=== PATIENT | male | born 2000 | race Caucasian/White ===

== ENCOUNTER 2021-03-16 08:11 | Emergency (ER) | payer MEDICARE ==
[2021-03-16] MEDS ORDERED: solu-MEDROL 125 MG, Sterile H2O 10 ml 2 ML IV ONE ×2 (08:41)
[2021-03-16] MEDS ORDERED: BENADRYL 50 MG/ML IV ONE (08:41)
[2021-03-16] MEDS ORDERED: solu-MEDROL ONE (08:42)
[2021-03-16] MEDS ORDERED: Sterile H2O 10 ml IJ ONE (08:42)
[2021-03-16] MEDS ORDERED: BENADRYL 50 MG/ML ONE (08:42)
[2021-03-16] MEDS ORDERED: Sodium Chloride 0.9% 1000 ML 1,000 ML IV STA (09:27)
[2021-03-16 09:44] LABS: Appearance CLEAR (CLEAR); Bilirubin NEGATIVE (NEGATIVE); Blood NEGATIVE Ery/ul (0-5); Glucose NEGATIVE (NEGATIVE); Ketones NEGATIVE (NEGATIVE); Leukocyte Esterase NEGATIVE (NEGATIVE); Mucus SLIGHT /HPF (NEGATIVE); Nitrite NEGATIVE (NEGATIVE); Protein,Urine Dip NEGATIVE (Negative); Specific Gravity 1.011 (1.005-1.025); Urobilinogen NEGATIVE mg/dL (0-1)
[2021-03-16 09:47] LABS: ALBUMIN 4.6 g/dL (3.5-5.0); ALKALINE PHOSPHATASE 64 U/L (38-126); ANION GAP 14.9 MEQ/L (5-15); BLOOD UREA NITROGEN 9 mg/dL (9-20); CHLORIDE 103 mmol/L (98-107); Calcium 9.4 mg/dL (8.4-10.2); Carbon Dioxide 26 mmol/L (22-30); Creatinine 1 0.94 mg/dL (0.66-1.25); EST GLOMERULAR FILTRATION RATE > 60.0 ML/MIN; Glucose 109 mg/dL (74-106); Potassium 3.6 mmol/L (3.5-5.1); SGOT/AST 25 U/L (17-59); SGPT/ALT 19 U/L (0-50); SODIUM 141 mmol/L (137-145); Total Protein 7.2 g/dL (6.3-8.2)
[2021-03-16 09:49] LABS: Absolute Neutrophil Ct (ANC) 10.77 (1.4-6.9); BASOPHIL % 0.1 % (0.0-0.4); Basophil (Absolute #) 0.01 (0-0.4); Eosinophil (Absolute #) 0.12 (0-0.5); Lymphocyte (Absolute #) 1.06 (1.0-4.6); Lymphocytes % 8.4 % (24.0-44.0); Mean Cell Volume 91.2 fl (78-100); Mean Corpuscular Hemoglobin 29.8 pg (26-32); Mean Corpuscular Hgb Concent. 32.7 g/dl (32-36); Mean Platelet Volume 10.4 fl (7.5-11.0); Monocyte (Absolute #) 0.64 (0.0-1.3); Monocytes % 5.1 % (0.0-12.0); Neutrophil % 85.4 % (36.0-66.0); Platelet Count 176 K/mm3 (150-450); Red Cell Distribution Width 12.5 % (11.5-14.0); White Blood Count 12.6 K/mm3 (4.0-10.5)
[2021-03-16] MEDS ORDERED: Sodium Chloride 0.9% 1000 ML 1,000 ML ONE (09:51)
[2021-03-16 09:53] LABS: Bacteria NONE SEEN /HPF (NEGATIVE)
--- NOTE | 2021-03-16 11:39 | ERPHSYRPT ---
- History of Present Illness Time Seen by Provider: 03/16/21 08:35 Source: patient, family Exam Limitations: no limitations Patient Subjective Stated Complaint: Allergic reaction Triage Nursing Assessment: Patient ambulated back to ED and transferred self to bed. Patient A+O X3. Patient's skin flushed, warm and dry. Patient lives with grandmother and she stated she woke patient up to go to work and noticed he was red all over. Patient's face, neck, trunk, and carlos extremities noted to be red, swollen with hives. Patient denies pain or discomfort. Patient denies trouble swallowing or breathing. Lungs clear a/p carlos. Physician History: Patient is a 20-year-old male who presents with generalized rash and facial swelling particularly around the eyes. He awoke with this rash and swelling this morning. Mother gave him an aspirin and a 25 mg of liquid Benadryl. Family reports that he has had 3 episodes over the last 12 to 18 months of unexplained episodes of urticaria which have been treated with steroids and re solved. Etiology remains elusive. Timing/Duration: today Quality: itchy Severity: severe Location: generalized Possible Causes: no cause identified Modifying Factors: Improves With: antihistamine Associated Symptoms: hives, rash, swelling/mass/lumps (Swelling of the face and the eyes) Allergies/Adverse Reactions: No Known Drug Allergies Allergy (Unverified 03/16/21 08:22) Hx Influenza Vaccination/Date Given: No Hx Pneumococcal Vaccination/Date Given: No Immunizations Up to Date: Yes Travel Risk - International Travel Have you traveled outside of the country in past 3 weeks: No - Coronavirus Screening Are you exhibiting any of the following symptoms?: No Close contact with a COVID-19 positive Pt in past 14-21 Days: No - Vaccine Status Have you recieved a Covid-19 vaccination: Yes [employer]: Moderna - Vaccination Dates Date of 2cond Vaccination (if applicable): March 2021 - Review of Systems Constitutional: No Fever, No Chills Eyes: Eye Redness, Itchy Ears, Nose, & Throat: No Symptoms Respiratory: No Cough, No Dyspnea Cardiac: No Chest Pain, No Edema, No Syncope Abdominal/Gastrointestinal: No Abdominal Pain, No Nausea, No Vomiting, No Diarrhea Genitourinary Symptoms: No Dysuria Musculoskeletal: No Back Pain, No Neck Pain Skin: Rash (Generalized urticarial type rash blanches with skin stretching or pressure) Neurological: No Dizziness, No Focal Weakness, No Sensory Changes Psychological: Depression Endocrine: No Symptoms Hematologic/Lymphatic: No Symptoms Immunological/Allergic: No Symptoms All Other Systems: Reviewed and Negative - Past Medical History Pertinent Past Medical History: No Neurological History: No Pertinent History ENT History: No Pertinent History Cardiac History: No Pertinent History Respiratory History: No Pertinent History Endocrine Medical History: No Pertinent History Musculoskeletal History: No Pertinent History GI Medical History: No Pertinent History History: No Pertinent History Psycho-Social History: No Pertinent History Male Reproductive Disorders: No Pertinent History Other Medical History: learning disability ; speech impetimet - Past Surgical History Past Surgical History: No Neuro Surgical History: No Pertinent History Cardiac: No Pertinent History Respiratory: No Pertinent History Gastrointestinal: No Pertinent History Genitourinary: No Pertinent History Musculoskeletal: No Pertinent History Male Surgical History: No Pertinent History Other Surgical History: throat surgery - Social History Smoking Status: Never smoker Exposure to second hand smoke: No Drug Use: none Patient Lives Alone: No (with grandmother) - Nursing Vital Signs Nursing Vital Signs: Initial Vital Signs Temperature 99.8 F 03/16/21 08:22 Pulse Rate 125 H 03/16/21 08:22 Respiratory Rate 20 03/16/21 08:22 Blood Pressure 138/91 03/16/21 08:22 O2 Sat by Pulse Oximetry 100 03/16/21 08:22 Pain Scale Pain Intensity 0 - Physical Exam General Appearance: mild distress, alert Eye Exam: PERRL/EOMI, eyes nml inspection Ears, Nose, Throat Exam: normal ENT inspection, pharynx normal, moist mucous membranes Neck Exam: normal inspection, non-tender, supple, full range of motion Respiratory Exam: normal breath sounds, lungs clear, No respiratory distress Cardiovascular Exam: regular rate/rhythm, normal heart sounds Gastrointestinal/Abdomen Exam: soft, mass, No tenderness Back Exam: normal inspection, normal range of motion, No CVA tenderness, No vertebral tenderness Extremity Exam: normal inspection, normal range of motion Neurologic Exam: alert, oriented x 3, cooperative, normal mood/affect, sensation nml, No motor deficits Skin Exam: rash (Has generalized urticarial type rash which blanches with skin stretching or pressure it is noted there is facial edema and particularly in the periorbital areas.) SpO2 Interpretation: normal SpO2: 100 O2 Delivery: Room Air - Course Nursing assessment & vital signs reviewed: Yes Ordered Tests: Active Orders 24 hr Category Date Time Status CBC W DIFF Stat Lab 03/16/21 09:30 Completed CMP Stat Lab 03/16/21 09:30 Completed UA W/RFX UR CULTURE Stat Lab 03/16/21 09:33 Completed Medication Summary Discontinued Medications Generic Name Dose Route Start Last Admin Trade Name Robert PRN Reason Stop Dose Admin Methylprednisolone Sodium 0 mg 03/16/21 08:41 03/16/21 08:43 Succinate 125 mg/ Sterile IV 03/16/21 08:42 125 mg Water 2 ml STAT ONE Administration Diphenhydramine HCl 25 mg 03/16/21 08:41 03/16/21 08:45 Diphenhydramine Hcl 50 Mg/Ml Vial IV 03/16/21 08:42 25 mg STAT ONE Administration Diphenhydramine HCl Confirm 03/16/21 08:42 Diphenhydramine Hcl 50 Mg/Ml Vial Administered 03/16/21 08:43 Dose 50 mg .ROUTE .STK-MED ONE Sodium Chloride 1,000 mls @ 999 mls/hr 03/16/21 09:27 03/16/21 10:58 Sodium Chloride 0.9% 1000 Ml IV 03/16/21 10:27 Infused .Q1H1M STA Infusion Sodium Chloride Confirm 03/16/21 09:51 Sodium Chloride 0.9% 1000 Ml Administered 03/16/21 09:52 Dose 1,000 mls @ ud .ROUTE .STK-MED ONE Methylprednisolone Sodium Succinate Confirm 03/16/21 08:42 Methylprednis Sod Succ 125 Mg/2 Ml Vial Administered 03/16/21 08:43 Dose 125 mg .ROUTE .STK-MED ONE Sterile Water Confirm 03/16/21 08:42 Water For Injection,Sterile 10 Ml Vial Administered 03/16/21 08:43 Dose 10 ml IJ .STK-MED ONE Lab/Rad Data: Laboratory Result Diagrams 03/16/21 09:30 03/16/21 09:30 Laboratory Results 03/16/21 03/16/21 03/16/21 Range/Units 09:33 09:30 09:30 WBC 12.6 H (4.0-10.5) K/mm3 RBC 5.70 H (4.1-5.6) M/mm3 Hgb 17.0 (12.5-18.0) gm/dl Hct 52.0 H (42-50) % MCV 91.2 (78-100) fl MCH 29.8 (26-32) pg MCHC 32.7 (32-36) g/dl RDW 12.5 (11.5-14.0) % Plt Count 176 (150-450) K/mm3 MPV 10.4 (7.5-11.0) fl Gran % 85.4 H (36.0-66.0) % Eos # (Auto) 0.12 (0-0.5) Absolute Lymphs (auto) 1.06 (1.0-4.6) Absolute Monos (auto) 0.64 (0.0-1.3) Lymphocytes % 8.4 L (24.0-44.0) % Monocytes % 5.1 (0.0-12.0) % Eosinophils % 1.0 (0.00-5.0) % Basophils % 0.1 (0.0-0.4) % Absolute Granulocytes 10.77 H (1.4-6.9) Basophils # 0.01 (0-0.4) Sodium 141 (137-145) mmol/L Potassium 3.6 (3.5-5.1) mmol/L Chloride 103 (98-107) mmol/L Carbon Dioxide 26 (22-30) mmol/L Anion Gap 14.9 (5-15) MEQ/L BUN 9 (9-20) mg/dL Creatinine 0.94 (0.66-1.25) mg/dL Estimated GFR > 60.0 ML/MIN Glucose 109 H (74-106) mg/dL Calcium 9.4 (8.4-10.2) mg/dL Total Bilirubin 1.10 (0.2-1.3) mg/dL AST 25 (17-59) U/L ALT 19 (0-50) U/L Alkaline Phosphatase 64 (38-126) U/L Serum Total Protein 7.2 (6.3-8.2) g/dL Albumin 4.6 (3.5-5.0) g/dL Urine Color YELLOW (YELLOW) Urine Appearance CLEAR (CLEAR) Urine pH 6.0 (5-6) Ur Specific [place] 1.011 (1.005-1.025) Urine Protein NEGATIVE (Negative) Urine Ketones NEGATIVE (NEGATIVE) Urine Blood NEGATIVE (0-5) [place]/ul Urine Nitrite NEGATIVE (NEGATIVE) Urine Bilirubin NEGATIVE (NEGATIVE) Urine Urobilinogen NEGATIVE (0-1) mg/dL Ur Leukocyte Esterase NEGATIVE (NEGATIVE) Urine WBC (Auto) NONE (0-5) /HPF Urine RBC (Auto) NONE (0-2) /HPF U Epithel Cells (Auto) NONE (FEW) /HPF Urine Bacteria (Auto) NONE SEEN (NEGATIVE) /HPF Urine Mucus (Auto) SLIGHT (NEGATIVE) /HPF Urine Culture Reflexed NO (NO) Urine Glucose NEGATIVE (NEGATIVE) mg/dL - Progress Progress: improved - Departure Departure Disposition: Home Clinical Impression: Urticaria Condition: Stable Critical Care Time: No Referrals: SANFORD MADERA MD [Primary Care Provider] - Follow up/PCP as directed Instructions: Hives (DC) Prescriptions: Epinephrine [Epipen] 0.3 mg IM DIRECTIONS UNKNOWN 1 Days #1 ml Prednisolone 5 mg/5 ml [Pediapred SOLUTION 5 MG/5 ML] 15 mg PO BID 5 Days #150 ml
== END 2021-03-16 11:53 | disposition home or self-care (01) ==
LOC: ED 08:11
DX: L50.9 Urticaria, unspecified (principal); R60.0 Localized edema
CPT/HCPCS: 36000; 36415; 80053; 81001; 85025; 96360; 96374; 96375; 99284; J1200; J2930